=== PATIENT | male | born 1945 | race Caucasian/White ===

== ENCOUNTER → 2017-05-18 | Outpatient (CLI) | payer MEDICARE, BC ==
[~2017-05-18] MED LIST: ATEN25TA PO; ATOR20TA15 PO; COQ-100C5 PO; CYCL5TAB PO; HYDR-3583 PO; OMEP20TA PO; TRIA1SPR5 EACH NARE
[2017-05-18 10:35] LABS: HEMATOCRIT 42.9 % (39.0-51.0); MEAN CELL VOLUME 96.4 FL (80.0-100.0); MEAN CORPUSCULAR HEMOGLOBIN 32.5 PG (27.0-34.0); MEAN CORPUSCULAR HGB CONC 33.7 % (32.0-36.0); PLATELET COUNT 236 TH/MM3 (150-450); RED BLOOD COUNT 4.45 MIL/MM3 (4.50-5.90); RED CELL DISTRIBUTION WIDTH 12.5 % (11.6-17.2); REVIEW FLAG FINAL
[2017-05-18 10:41] LABS: BLOOD, URINE NEG (NEG); COMMENT (UR) CULT NOT INDICATED; CULTURE IF INDICATED CULT NOT INDICATED; GLUCOSE,URINE NEG (NEG); KETONE, URINE NEG (NEG); MUCUS URINE FEW /lpf (OCC); NITRITE,URINE NEG (NEG); PH, URINE 5.5 (5.0-8.5); URINE COLOR LIGHT-YELLOW (YELLW/STRAW)
[2017-05-18 10:45] LABS: APTT (PATIENT) 26.8 SEC (24.3-30.1); PROTHROMBIN TIME - PATIENT 10.5 SEC (9.8-11.6)
[2017-05-18 10:57] LABS: ALT (GPT) 22 U/L (12-78); ANION GAP 5 MEQ/L (5-15); AST (GOT) 9 U/L (15-37); BICARBONATE 27.6 MEQ/L (21.0-32.0); BLOOD UREA NITROGEN 21 MG/DL (7-18); CHLORIDE 106 MEQ/L (98-107); GLOMERULAR FILTRATION RATE 83 ML/MIN (>89); GLUCOSE,FASTING 92 MG/DL (74-99); POTASSIUM 4.4 MEQ/L (3.5-5.1); SODIUM (NA) 139 MEQ/L (136-145)
[2017-05-18 10:59] LABS: ALKALINE PHOSPHATASE 95 U/L (45-117); TOTAL BILIRUBIN ADULT 0.4 MG/DL (0.2-1.0)
--- NOTE | 2017-05-19 15:44 | EKG ---
Date Performed: 05/18/2017 Time Performed: 10:21:10 PTAGE: 71 years EKG: SINUS BRADYCARDIA BORDERLINE ECG NO PREVIOUS TRACING DOCTOR: Tristen Holman Interpretating Date/Time 05/19/2017 15:42:34
== END ==
LOC: CPRE 09:49
PROVIDERS: ATTEND Dentist Oral and Maxillofacial Surgery
DX: Z01.810 Encounter for preprocedural cardiovascular examination (principal); D16.5 Benign neoplasm of lower jaw bone; R94.31 Abnormal electrocardiogram [ECG] [EKG]; Z01.812 Encounter for preprocedural laboratory examination
CPT/HCPCS: 36415; 80053; 81001; 85027; 85610; 85730; 93005

== ENCOUNTER → 2017-05-20 | Day surgery (SDC) | payer MEDICARE, BC ==
--- NOTE | 2017-05-18 16:14 | MH ---
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 He is admitted at this time for definitive treatment of the above mentioned pathology. PAST MEDICAL HISTORY: 1. past medical history reveals appendectomy 2008 2. turbinate surgery in 2016 3. transurethral microwave procedure of the prostate 2010 4. Green light procedure 2015 5. Bilateral blepharoplasty 2013 6. Torn rotator cuff repair in 2010. MEDICAL HISTORY 1. Has hereditary hemochromatosis 2. Hypertension 3. Arthritis 4. spinal stenosis 5. He had normal growth and development. 6. No history of infectious diseases. 7. No autoimmune disorders. MEDICATIONS: 1. Atenolol 12.5 mg q.h.s. 2. Omeprazole 20 mg daily. 3. Zantac 75 mg q.h.s. 4. Atorvastatin 20 mg q.h.s. 5. Co-Q 10, 100 daily. 6. Nasacort 55 p.r.n. 7. Hydrocodone 10 mg p.r.n. 8. Carbazine 5 mg p.r.n. 1. Mobic 7.5 mg p.r.n. 2. Sudafed 30 mg p.r.n. ALLERGIES [place]ROS[place] FAMILY HISTORY: Mother of breast cancer. She had glaucoma and hypertension. Father macular degeneration, hypertension, sister had ovarian cancer. OCCUPATIONAL HISTORY: He is retired, lives at home with his , does not use tobacco or alcohol or recreational drugs. REVIEW OF SYSTEMS HEAD: No history of headaches, dizziness, lightheaded injury or seizure disorders. EYES, EARS, NOSE, AND THROAT: Eyes: No history of double vision tearing or blind spots. He wears corrective lenses for reading. Nose: No history of bleeding, obstruction or discharge. Mouth problems as noted above expansile odontogenic keratosis, Throat: No history of hoarseness, soreness, thyroid disease, lymph nodes or local or general glandular enlargement. RESPIRATORY: No history of tuberculosis, shortness of breath, cough, asthma, COPD, sleep apnea. CARDIOVASCULAR SYSTEM: No history of precordial pain, shortness of breath on exertion, rheumatic fever, edema, phlebitis, heart murmurs does have a history of hypertension. GASTROINTESTINAL: No gallbladder disease, peptic ulcer disease. GENITOURINARY: No urinary tract infections or kidney disease. MUSCULOSKELETAL: He has low back pain does not have any limitation of movement or muscular weakness. ENDOCRINE: No history of diabetes, hormone therapy, growth abnormality. HEMATOLOGIC: History of anemia, bleeding tendencies, Rh incompatibility no history of previous transfusions. NEUROLOGIC: No sensory motor disturbances. PHYSICAL EXAMINATION: VITAL SIGNS: He is 5 feet 9, weighs 160 pounds. HEAD, EYES, EARS, NOSE, AND THROAT: Head is normocephalic and no masses noted. Eyes: EOMs intact. Pupils equal, round, reactive to light and accommodation. Ears: TMs intact with Nose; intact enlarged turbinates. There does not appear to be any visual expansion well into the nasal cavity. Mouth; He has a large, expanding odontogenic paroxysms anterior maxilla. Throat: Clear. NECK: His neck is supple. There is no carotid bruits. No thyroid enlargement. CHEST: The chest is clear to auscultation. HEART: The heart has a regular sinus rhythm without thrill, murmur or gallop. Peripheral pulses full and equal throughout. ABDOMEN: Soft, no masses or organomegaly. Bowel sounds present. NEUROLOGIC: Cranial nerves II-XII intact. Deep tendon reflexes are symmetric and physiologic. ASSESSMENT AND PLAN: The patient has had been informed of the need for removal of the odontogenic keratosis. He understands that there is a possibility of needing removal of approximately six anterior teeth. He also understands that cyst may extend the nose requiring further treatment. The patient and the patient's understand and accept the treatment. ELLE Arceo /3:03 PM /3:38 PM
[~2017-05-20] VITALS: Ht 175.3 cm; Wt 73.5 kg
[~2017-05-20] MED LIST changes: +*morphine SULFATE 8 MG/ML PERIprocedure ONLY ONE; +ACETAMINOPHEN 1000 MG/100 ML 100 ML IV ONE; +ANTICOAGULANT CITRATE DEXTROSE SOLN-A 1L ONE; +CHLORHEXIDINE GLUCONATE 0.12% 15 ML CUP ONE; +CHLORHEXIDINE GLUCONATE 2 % 1 PACK (2 CLOTHS) TOPICAL PRN; +DEXAMETHASONE SOD PHOS 4 MG/ML VIAL ONE; +DO NOT ADM ANY ANTICOAGULANT DRUGS PRN; +FAMOTIDINE 20 MG/2 ML VIAL ONE; +GLYCOPYRROLATE 1 MG/5 ML SYRINGE IV PUSH ONE; +INSULIN HUMAN REGULAR 1,000 UNITS/10 ML VIAL SQ PRN; +LACTATED RINGER'S 1000 ML IV PRN; +LIDOCAINE 2%/EPINEPHrine PF 1:200,000 20ML SDV ONE; +LIDOCAINE HCL 1% PF 5 ML AMPULE OTHER ONE; +METOPROLOL TARTRATE 25 MG TAB PO PRN; +MICROFIBRILLAR COLLAGEN HEMOSTAT 70 X 35 MM BANDAGE ONE; +MIDAZOLAM HCL 2 MG/2 ML VIAL IV ONE; +MORPHINE SULFATE 2 MG/ML INJ ONE; +NEOSTIGMINE 3 MG/3 ML SYR IV ONE; +ONDANSETRON HCL 4 MG/2 ML VIAL IV PUSH ONE; +PHENYLEPH/NS 1000 MCG/10 ML SYR IV ONE; +POVIDONE IODINE 5% (ANTISEPSIS KIT) 4 APPLICATIONS EACH NARE PRN; +PROPOFOL 200 MG/20 ML AMP IV ONE; +ROCURONIUM INJ 50 MG/5 ML SYRINGE IV PUSH ONE; +SODIUM CHLORID 0.9% 500 ML IV PRN; +THROMBIN (TOPICAL) 5,000 UNIT VIAL ONE; +ceFAZolin 1,000 MG/NS 100 ML IV SCH; +ePHEDrine/NS 25 MG/5 ML SYR IV ONE
[2017-05-20 17:45] VITALS: BP 156/84; PULSE 66; RESP 18; TEMP 96.7; O2SAT 94
--- NOTE | 2017-05-21 13:25 | MP ---
cc: DIXIE AMADO DDS DATE OF SURGERY: 05/21/2017 PREOPERATIVE DIAGNOSIS Expanding keratocyst of the anterior maxilla. POSTOPERATIVE DIAGNOSIS Expanding keratocyst of the anterior maxilla. OPERATIVE PROCEDURE PERFORMED 1. Excision of expanding keratocyst. 2. Corticocancellous bone graft to the defect in the maxilla with the use of BMP, PRP, as well as corticocancellous bone. ORAL SURGEON Dr. Dixie Amado GRAIN ELEVATOR AGENT Dr. Donn Sandoval OPERATIVE PROCEDURE The patient was brought to the operating room and placed upon the operating table in supine position. The patient was anesthetized intravenously and intubated via the oral route. Once this was completed the patient was prepped and draped in the usual manner for an intraoral procedure. A throat pack was placed. 1% Xylocaine, 100,000 epinephrine was infiltrated in the buccal vestibule from first molar to first molar. Once this was completed a full-thickness mucoperiosteal incision was made around the next teeth from first molar to first molar. Vertical releasing incisions were carried out. The flap was reflected and the area of aggressive cystic formation was identified. It was noted that this cystic lesion extended back to the first molar on the left and all the way to the first bicuspid on the right. It is also of note that the bony floor of the nasal cavity has been eroded by the cyst. Once the outline of the cyst was identified the facial bone was removed with the use of a rotary instrument. The cystic area was then peeled out of the cavity and sent for definitive biopsy. Once this was completed the rotary instrument was used to decorticate all the bone in the area of the cystic formation. The defect in the nasal mucosa was sutured with 4-0 chromic sutures. The cavity than had placement of BMP with corticocancellous bone bank bone. In addition, this bone bank bone was mixed with PRP. Once this completed the incision line was closed with interrupted 4-0 chromic suture and the patient was taken to Recovery in good condition. Dixie Amado DDS RHEA/CAPRI /7:59 AM /1:09 PM
== END | disposition home or self-care (01) ==
LOC: HSDC 12:41
PROVIDERS: ATTEND Dentist Oral and Maxillofacial Surgery
DX: D16.5 Benign neoplasm of lower jaw bone (principal); K09.0 Developmental odontogenic cysts; B95.4 Other streptococcus as the cause of diseases classified elsewhere; E83.110 Hereditary hemochromatosis; I10 Essential (primary) hypertension; M48.00 Spinal stenosis, site unspecified; Z80.3 Family history of malignant neoplasm of breast
CPT/HCPCS: 00190; 21030; 21210; 87015; 87070; 87102; 87116; 87205; 87206; 88307; C1713; J0131; J0690; J1100; J2250; J2270; J2370; J2405; J2710; J3010; J7120; 88305